=== PATIENT | male | born 1975 | race Caucasian/White ===

== ENCOUNTER 2025-07-24 16:15 | Inpatient (IN) | payer OTHER ==
[~2025-07-24] VITALS: Ht 185.4 cm; Wt 127.0 kg
[2025-07-24 16:17] VITALS: O2SAT 93
[2025-07-24 17:10] LABS: HEMATOCRIT. 44.8 % (42.0-52.0); HEMOGLOBIN. 14.5 g/dL (14.0-18.0); MEAN PLATELET VOLUME 8.1 fl (7.4-10.4); PLATELET 400 x1000/uL (130-400); RED BLOOD CELL COUNT 4.94 mill/uL (4.7-6.1); RED CELL DISTRIBUTION WIDTH 15.0 % (11.6-14.6)
[2025-07-24] MEDS: ONDANSETRON HCL 4MG/2ML INJ IV ONE (17:20)
[2025-07-24] MEDS: MORPHINE SULFATE 4 MG/ML INJ (FOR IV/IM USE) IV ONE (17:21)
[2025-07-24] MEDS: SODIUM CHLORIDE 0.9% (SEPSIS BOLUS) IV ONE (17:21)
[2025-07-24] MEDS: PIPERACILLIN/TAZO 3.375G/50ML 50 ML IV ONE (17:21)
[2025-07-24 17:30] LABS: CREATININE 2.3 mg/dL (0.6-1.3); UREA NITROGEN BLOOD 22 mg/dL (9-23)
[2025-07-24 17:31] LABS: PROTEIN TOTAL 6.1 g/dL (6.0-8.3); TROPONIN I HIGH SENSITIVITY < 4 ng/L (3.0-53)
[2025-07-24 17:32] LABS: ASPARTATE AMINOTRANSFERASE 12 IU/L (<34)
[2025-07-24 17:33] LABS: BILIRUBIN DIRECT 0.4 mg/dL (<=3.0); BILIRUBIN TOTAL 1.2 mg/dL (0.1-1.0)
[2025-07-24 17:34] LABS: LYMPHOCYTES % MANUAL 6.0 % (20.0-50.0); METAMYELOCYTES % 1.0 % (0-0); MONOCYTES % MANUAL 12.0 % (2.0-8.0); MYELOCYTES % 1.0 % (0-0); NEUTROPHILS % MANUAL 80.0 % (45.0-75.0); PLATELET ESTIMATE INCREASED
[2025-07-24 17:37] LABS: INR 1.1
[2025-07-24 18:50] LABS: CLARITY URINE TURBID (CLEAR); COLOR URINE ORANGE (YELLOW); GLUCOSE URINE TRACE (NEGATIVE); KETONES URINE TRACE (NEGATIVE); LEUKOCYTE ESTERASE URINE 2+ (NEGATIVE); NITRITE URINE NEGATIVE (NEGATIVE); OCCULT BLOOD URINE 3+ (NEGATIVE); PH URINE 5.0 (4.5-8.0); PROTEIN URINE 3+ (NEGATIVE); SPECIFIC GRAVITY URINE 1.031 (1.005-1.030); UROBILINOGEN URINE 1.0 E.U./dL (0.2-1.0)
[2025-07-24 20:10] LABS: BACTERIA URINE 3+; SQUAMOUS EPITHELIAL CELL URINE FEW /lpf (RARE/1+); WBC URINE 15-25 /hpf (0-2)
[2025-07-24] MEDS ORDERED: NOREPINEPHRINE 8MG/250ML PMX 250 ML IV PRN (21:15)
[2025-07-24] MEDS ORDERED: PHENYLEPHRINE 50MG/250ML PMX 250 ML IV PRN (21:15)
[2025-07-24] MEDS ORDERED: VASOPRESSIN 20 UNIT in SODIUM CHLORIDE 0.9% 99 ML IV PRN (21:15)
[2025-07-24] MEDS ORDERED: ACETAMINOPHEN 325MG TABLET PO PRN ×2 (21:45)
[2025-07-24] MEDS ORDERED: IPRATROPIUM/ALBUTEROL 0.5-3(2.5)MG/3ML NEB HHN PRN (21:45)
[2025-07-24] MEDS ORDERED: DOCUSATE SODIUM 100MG CAPSULE PO PRN (21:45)
[2025-07-24] MEDS ORDERED: VANCOMYCIN 1G PREMIX 200 ML IV SCH (21:45)
[2025-07-24] MEDS ORDERED: PIPERACILLIN/TAZOBACTAM 3.375 G in DEXTROSE 5% WATER 50 ML IV SCH (21:45)
[2025-07-24 22:00] VITALS: BP 111/73; PULSE 81; RESP 19; TEMP 36.4; O2SAT 96
[2025-07-24] MEDS ORDERED: DEXTROSE 50% WATER 50ML SYRINGE IV PRN (22:00)
[2025-07-24] MEDS ORDERED: SODIUM CHLORIDE 0.9% 1,000 ML IV SCH (22:00)
[2025-07-24] MEDS ORDERED: NALOXONE HCL 0.4MG/ML VIAL IV PRN (22:00)
[2025-07-24] MEDS: ONDANSETRON HCL 4MG/2ML INJ IV PRN (22:18)
[2025-07-24] MEDS: HYDROCODONE/ACETAMINOPHEN 5/325MG TABLET PO PRN (23:07)
[2025-07-24] MEDS: PANTOPRAZOLE SODIUM 40 MG/VIAL IV NR (23:17)
[2025-07-24] MEDS: VANCOMYCIN 2GM PMX (XELLIA) 400 ML IV SCH (23:32)
[2025-07-24] MEDS: PIPERACILLIN/TAZO 3.375G/50ML IV SCH (23:32)
[2025-07-24] MEDS: MAGNESIUM 4 G PREMIX 100 ML IV SCH (23:32)
[2025-07-25] VITALS (11 sets, daily range): BP systolic 74–132; BP diastolic 60–92; PULSE 74–101; RESP 15–28; TEMP 36.4–36.9; O2SAT 94–98
[2025-07-25] MEDS ORDERED: IOHEXOL-350 100 ML BOTTLE ONE (00:05)
[2025-07-25] MEDS: ENOXAPARIN 100MG/ML SYR SUBCUT SCH (00:09)
[2025-07-25] MEDS: DEXT 5%/0.45% NACL 1000ML 1,000 ML IV SCH (00:10)
[2025-07-25] MEDS ORDERED: MORPHINE SULFATE/PF 1 MG/ML 100 MG in BAG 1 EACH IV PRN (00:45)
[2025-07-25] MEDS: MORPHINE SULFATE 2 MG/ML INJ (NOT FOR IM USE) IV NR (00:45)
[2025-07-25] MEDS: SODIUM CHLORIDE 0.9% 500 ML IV ONE (04:17)
[2025-07-25] MEDS: MIDODRINE HCL 5MG TABLET PO PRN (04:24)
[2025-07-25] MEDS ORDERED: EPINEPHRINE 1:1000 1 MG/ML AMP INJ NR (05:30)
[2025-07-25] MEDS: DIPHENHYDRAMINE 50MG/ML VIAL IV NR ×2 (05:37→10:15)
[2025-07-25] MEDS: EPINEPHRINE 1:1000 1 MG/ML AMP IM NR (05:50)
[2025-07-25 07:59] LABS: TRIGLYCERIDE 124 mg/dL (0-150)
[2025-07-25 08:00] LABS: CREATININE 1.9 mg/dL (0.6-1.3); UREA NITROGEN BLOOD 34 mg/dL (9-23)
[2025-07-25 08:01] LABS: ASPARTATE AMINOTRANSFERASE 12 IU/L (<34); LDL CHOLESTEROL 68 mg/dL (5-100); PROTEIN TOTAL 4.9 g/dL (6.0-8.3)
[2025-07-25 08:02] LABS: BILIRUBIN DIRECT 0.3 mg/dL (<=3.0); BILIRUBIN TOTAL 0.8 mg/dL (0.1-1.0); TROPONIN I HIGH SENSITIVITY < 4 ng/L (3.0-53)
[2025-07-25 08:06] LABS: T4 FREE 1.04 ng/dL (0.89-1.76)
[2025-07-25] MEDS ORDERED: HYDR-4009 MT (08:08)
[2025-07-25] MEDS ORDERED: FAMO-135 PO (08:08)
[2025-07-25] MEDS ORDERED: METH-773 PO (08:08)
[2025-07-25] MEDS ORDERED: GABA-1180 PO (08:08)
[2025-07-25] MEDS ORDERED: TAMS-54 PO (08:08)
[2025-07-25] MEDS ORDERED: LOSA50TA41 PO (08:08)
[2025-07-25 08:28] LABS: BASOPHILS % 0.3 % (0.0-2.0); EOSINOPHILS % 0.1 % (0.0-5.0); HEMATOCRIT. 39.1 % (42.0-52.0); HEMOGLOBIN. 12.8 g/dL (14.0-18.0); LYMPHOCYTES % 21.8 % (20.0-50.0); MEAN PLATELET VOLUME 8.2 fl (7.4-10.4); MONOCYTES % 14.7 % (2.0-8.0); NEUTROPHILS % 63.1 % (40.0-76.0); PLATELET 291 x1000/uL (130-400); RED BLOOD CELL COUNT 4.35 mill/uL (4.7-6.1); RED CELL DISTRIBUTION WIDTH 15.1 % (11.6-14.6)
[2025-07-25] MEDS: PANTOPRAZOLE SODIUM 40 MG/VIAL IV SCH (08:59)
[2025-07-25] MEDS: LOSARTAN 50 MG TABLET PO SCH (09:00)
[2025-07-25] MEDS: ENOXAPARIN 120MG/0.8ML SYR SUBCUT SCH (18:37)
[2025-07-25] MEDS: LEVOFLOXACIN 750MG PREMIX 150 ML IV NR (21:29)
[2025-07-25] MEDS ORDERED: VANCOMYCIN 1GM/200ML PMX (BAXTER) IV SCH (22:00)
[2025-07-26] VITALS: BP 107/68; PULSE 80; RESP 18; TEMP 36.3; O2SAT 98
[2025-07-26 04:00] VITALS: BP 116/68; PULSE 74; RESP 17; O2SAT 98
[2025-07-26 07:29] LABS: CREATININE 0.9 mg/dL (0.6-1.3)
[2025-07-26 07:30] LABS: UREA NITROGEN BLOOD 13 mg/dL (9-23)
[2025-07-26 08:00] VITALS: BP 116/81; PULSE 72; RESP 18; TEMP 36.1; O2SAT 96
[2025-07-26 10:33] LABS: BASOPHILS % 0.3 % (0.0-2.0); EOSINOPHILS % 1.8 % (0.0-5.0); HEMATOCRIT. 32.6 % (42.0-52.0); HEMOGLOBIN. 10.9 g/dL (14.0-18.0); LYMPHOCYTES % 24.6 % (20.0-50.0); MEAN PLATELET VOLUME 7.7 fl (7.4-10.4); MONOCYTES % 12.0 % (2.0-8.0); NEUTROPHILS % 61.3 % (40.0-76.0); PLATELET 254 x1000/uL (130-400); RED BLOOD CELL COUNT 3.71 mill/uL (4.7-6.1); RED CELL DISTRIBUTION WIDTH 14.8 % (11.6-14.6)
[2025-07-26] MEDS ORDERED: LEVOFLOXACIN 500MG PREMIX 100 ML IV SCH (11:00)
[2025-07-26] MEDS ORDERED: LEVO-65 MT (11:03)
[2025-07-26] MEDS ORDERED: TOPUD PO (11:03)
[2025-07-26 11:47] VITALS: BP 127/86; PULSE 66; RESP 17; TEMP 97
[2025-07-26 12:00] VITALS: BP 127/86; PULSE 66; RESP 18; TEMP 36.5; O2SAT 97
[2025-07-26 15:41] VITALS: BP 128/89; PULSE 67; RESP 18
== END 2025-07-26 16:10 | disposition home or self-care (01) | DRG 698 ==
LOC: ER 16:15 → 5EST 19:49 → EDBEDREQ 19:53 → EDBEDREQTM 19:53 → 5WST 07-25 23:43
PROVIDERS: ADMIT Internal Medicine; ATTEND Internal Medicine
DX: T83.518A Infection and inflammatory reaction due to other urinary catheter, initial encounter (principal); A41.9 Sepsis, unspecified organism; R65.21 Severe sepsis with septic shock; R57.8 Other shock; J96.01 Acute respiratory failure with hypoxia; R16.0 Hepatomegaly, not elsewhere classified; N17.9 Acute kidney failure, unspecified; I10 Essential (primary) hypertension; K76.0 Fatty (change of) liver, not elsewhere classified; Z95.828 Presence of other vascular implants and grafts; Y84.6 Urinary catheterization as the cause of abnormal reaction of the patient, or of later complication, without mention of misadventure at the time of the procedure; E83.42 Hypomagnesemia; K57.30 Diverticulosis of large intestine without perforation or abscess without bleeding; Z88.0 Allergy status to penicillin; Z86.718 Personal history of other venous thrombosis and embolism; Z86.711 Personal history of pulmonary embolism; Z88.1 Allergy status to other antibiotic agents; Z79.899 Other long term (current) drug therapy; Y92.89 Other specified places as the place of occurrence of the external cause
CPT/HCPCS: 36415; 51702; 71045; 71275; 74176; 80048; 80061; 80076; 81003; 82962; 83605; 83735; 83880; 84145; 84439; 84443; 84481; 84484; 85025; 85379; 93005; 93970; 96365; 96375; 99291; A4615; J1200; J1650; J1956; J2270; J2405; J2470; J2543; J3373; J3475; J3490; J7030; Q9967